=== PATIENT | female | born 1995 | race Caucasian/White ===

== ENCOUNTER 2018-09-24 07:56 | Outpatient (CLI) | payer BC ==
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
[2018-09-24] MEDS ORDERED: Gadobenate Dimeglumine 529 MG/1 ML (20ML VIAL) ONE (16:21)
== END 2018-09-24 07:57 | disposition home or self-care (01) ==
LOC: MRI 07:56
DX: R22.42 Localized swelling, mass and lump, left lower limb (principal); L90.5 Scar conditions and fibrosis of skin
CPT/HCPCS: A9579